=== PATIENT | male | born 1955 | race Caucasian/White ===

== ENCOUNTER 2016-11-04 06:50 | Day surgery (SDC) | payer BC ==
[~2016-11-04 06:50] MED LIST: LIDOCAINE W/ SODIUM BICARB 0.5 ML SYR ONE; Lactated Ringers 1,000 ML PRIMARY IV ONE
[2016-11-04] MEDS ORDERED: PROPOFOL 10 MG/1 ML (200 MG/20 ML) VIAL IV ONE (07:30)
[2016-11-04] MEDS ORDERED: MIDAZOLAM 5 MG/1 ML IV ONE (07:30)
[2016-11-04 10:11] VITALS: RESP 12; TEMP 97.7
== END 2016-11-04 10:06 | disposition home or self-care (01) ==
LOC: SDSC 06:50
PROVIDERS: ATTEND Ophthalmology
DX: H25.12 Age-related nuclear cataract, left eye (principal)
CPT/HCPCS: 66984; J2704; J2250; J7120